=== PATIENT | female | born 1965 | race Hispanic/Latino ===

== ENCOUNTER 2017-01-06 22:07 | Emergency (ER) | payer OTHER ==
[~2017-01-06] VITALS: Ht 165.1 cm; Wt 90.7 kg
[2017-01-06 22:25] LABS: ABSOLUTE BASOPHIL COUNT 0 /CUMM (0.0-0.2); ABSOLUTE EOSINOPHIL COUNT 0.1 /CUMM (0.0-0.7); ABSOLUTE GRANULOCYTE CT 5.3 /CUMM (1.4-6.5); ABSOLUTE LYMPH COUNT 1.9 /CUMM (1.2-3.4); ABSOLUTE MONOCYTE COUNT 0.5 /CUMM (0.10-0.60); BASOPHIL % 0.3 % (0.0-2.0); GRANULOCYTE % 68.2 % (42.2-75.2); MEAN CORPUSCULAR HGB 29.8 PG (27.0-31.0); MEAN CORPUSCULAR HGB CONC 33.9 G/DL (33.0-37.0); MEAN PLATELET VOLUME 8.5 FL (7.4-10.4); PLATELET COUNT 220 /CUMM (130-400); RBC DISTRIBUTION WIDTH 13.4 % (11.5-14.5); RED BLOOD CELL CT 4.32 /CUMM (4.20-5.40); WHITE BLOOD CELL COUNT 7.8 /CUMM (4.8-10.8)
[2017-01-06] MEDS ORDERED: MULTI-DAY VITA1 EACH PO (22:29)
[2017-01-06] MEDS ORDERED: CRESTOR5 M1 PO (22:29)
[2017-01-06] MEDS ORDERED: ZESTRIL20 M1 PO (22:29)
[2017-01-06 23:09] VITALS: BP 152/96
--- NOTE | 2017-01-06 23:15 | RADIOLOGY REPORT ---
EXAMINATION: XR CHEST CLINICAL INFORMATION: Chest pain COMPARISON: None TECHNIQUE: 2 views of the chest were obtained. FINDINGS: No significant abnormality is noted involving the heart, lungs, mediastinum, bony thorax or soft tissues. IMPRESSION: Unremarkable examination.
--- NOTE | 2017-01-06 23:42 | ED CARDIAC/CP/PALPITATIONS ---
History of Present Illness General Chief Complaint: Chest Pain Stated Complaint: BIBA FOR CP Source: patient Exam Limitations: no limitations Vital Signs & Intake/Output Vital Signs & Intake/Output Vital Signs Date Time Temp Pulse Resp B/P B/P Pulse O2 O2 Flow FiO2 Mean Ox Delivery Rate 01/06 2309 65 16 152/96 98 Room Air 01/06 2233 98 Room Air 01/067 98.1 73 18 160/104 96 Room Air Allergies Coded Allergies: kiwi (ANAPHYLAXIS 01/06/17) Reconcile Medications Lisinopril (Zestril) (Unknown Strength) TABLET (Unknown Dose) PO DAILY SUPPLEMENT (Reported) Multivitamin (Multi-Day Vitamins) 1 EACH TABLET 1 TAB PO DAILY SUPPLEMENT ( Reported) Rosuvastatin Calcium (Crestor) 5 MG TABLET 1 TAB PO DAILY CHOLESTEROL ( Reported) Triage Note: pt biba from home after having CP. pt states it started over the past couple days as her stress has increased. she states afetr having an argument with ehr daughter the pain became much worse. skin is warm and dry, she is in no respiratory dsitress. states she has been taking her BP at home and it has been elevated. Triage Nurses Notes Reviewed? yes Onset: Abrupt Duration: hour(s):, day(s): Timing: recent history Location: central Radiation: no radiation Activities at Onset: none HPI: 51-year-old female comes into emergency room for further evaluation of central chest pain has been going on for the past 4 days intermittently that got worse tonight after an altercation verbally with her son. Patient reports that about an hour prior to arrival she got into a verbal altercation and argument with her son and started to experience some chest tightness and discomfort. Some mild shortness of breath associated with it. Denies any diaphoresis or nausea vomiting. No prior history of GA. History of hypertension and high cholesterol. Family history of grandfather having an GA in his 50s. Stress seems to make her symptoms worse. Denies any other substance of symptoms. (AMANDA RIVAS) Past History Travel History Traveled to [place] past 21 day No Medical History Any Pertinent Medical History? see below for history Neurological: NONE EENT: NONE Cardiovascular: hypertension, hyperlipidemia Respiratory: NONE Gastrointestinal: NONE Hepatic: NONE Renal: NONE Musculoskeletal: NONE Psychiatric: NONE Endocrine: diabetes (borderline) Blood Disorders: NONE Cancer(s): NONE GAUGE MAKER/Reproductive: NONE Surgical History Surgical History: non-contributory Psychosocial History What is your primary language Dutch Tobacco Use: Never used Family History Hx Contributory? Yes (see hpi) (AMANDA RIVAS) Review of Systems Review of Systems Constitutional: Reports: no symptoms. EENTM: Reports: no symptoms. Respiratory: Reports: no symptoms. Cardiovascular: Reports: see HPI. GI: Reports: no symptoms. Genitourinary: Reports: no symptoms. Musculoskeletal: Reports: no symptoms. Skin: Reports: no symptoms. Neurological/Psychological: Reports: no symptoms. Hematologic/Endocrine: Reports: no symptoms. Immunologic/Allergic: Reports: no symptoms. All Other Systems: Reviewed and Negative (AMANDA RIVAS) Physical Exam Physical Exam General Appearance: well developed/nourished, no apparent distress, alert Head: atraumatic, normal appearance Eyes: Bilateral: normal appearance, PERRL, EOMI. Ears, Nose, Throat: normal pharynx, normal ENT inspection, hearing grossly normal Neck: normal inspection, full range of motion Respiratory: normal breath sounds, no respiratory distress, chest wall tenderness Cardiovascular: regular rate/rhythm Back: normal inspection Extremities: normal inspection, normal range of motion, no edema Neurologic/Psych: no motor/sensory deficits, awake, alert, oriented x 3, normal gait, normal mood/affect Skin: intact, normal color Core Measures ACS in differential dx? Yes Severe Sepsis Present: No Septic Shock Present: No (AMANDA RIVAS) Progress Differential Diagnosis: AMI, aortic dissection, costochondritis, hyperkalemia, hypovolemia, hyperthyroid, musculoskeletal pain, myocarditis, pancreatitis, pericarditis, pneumonia, pneumothorax, pulmonary embolism, PUD/GERD, PVCs/PACs, respiratory failure, rib fracture, sepsis, unstable angina, V-fib/V-Tach, WPW syndrome Plan of Care: Orders Procedure Date/time Status TROPONIN LEVEL 01/07 215 Active EKG 01/07 215 Active Add-on Test (ER Only) 01/06 2233 Active D-DIMER 01/07 2216 Complete TROPONIN LEVEL 01/07 2212 Complete COMPREHENSIVE METABOLIC PANEL 01/07 2212 Complete CBC WITHOUT DIFFERENTIAL 01/07 2212 Complete EKG 01/07 2208 Active Laboratory Tests 01/06/172215: Anion Gap 10, Estimated GFR > 60, BUN/Creatinine Ratio 18.3, Glucose 101 H, Calcium 9.3, Total Bilirubin 0.8, AST 21, ALT 51, Alkaline Phosphatase 121, Troponin I < 0.01, Total Protein 7.8, Albumin 4.5, Globulin 3.3, Albumin/ Globulin Ratio 1.4, D-Dimer < 200, CBC w Diff NO MAN DIFF REQ, RBC 4.32, MCV 88.0, MCH 29.8, RDW 13.4, MPV 8.5, Gran % 68.2, Lymphocytes % 24.6, Monocytes % 5.9, Eosinophils % 1.0, Basophils % 0.3, Absolute Granulocytes 5.3, Absolute Lymphocytes 1.9, Absolute Monocytes 0.5, Absolute Eosinophils 0.1, Absolute Basophils 0, PUBS MCHC 33.9 Diagnostic Imaging: Viewed by Me: Radiology Read. Discussed w/RAD: Radiology Read. Radiology Impression: SERVICE DATE: 01/06/17 EXAM TYPE: RAD - XRY-CHEST XRAY, PA AND LATERAL EXAMINATION: XR CHEST CLINICAL INFORMATION: Chest pain COMPARISON: None TECHNIQUE: 2 views of the chest were obtained. FINDINGS: No significant abnormality is noted involving the heart, lungs, mediastinum, bony thorax or soft tissues. IMPRESSION: Unremarkable examination. Initial ED EKG: normal intervals, normal p-waves, normal QRS complex, normal sinus rhythm, rate (71), nonspecific ST T wave chg Hand-Off Endorsed To: MYA SALDANA MD Endorsed Time: 2342 Pending: EKG, other (second troponin) (AMANDA RIVAS) Comments: Patient has been obtained and lab results. Question up and answered. Patient does not want to wait to have a second set of enzymes. Patient understands the risks of leaving prior to finishing the workup. Patient understands that we had not ruled out acute coronary syndrome. Patient is awake alert and oriented 3. Patient is competent to make this decision. (MYA SALDANA MD) Departure Departure Disposition: HOME OR SELF CARE Condition: Stable Clinical Impression Primary Impression: Atypical chest pain Referrals: Alpesh RAMIREZ MD UNKNOWN (PCP/Family) Additional Instructions: Follow-up with bilingual inside sales representative provided for outpatient workup. Return if any concerns worsening symptoms. Please go over all results of today's visit with your primary care doctor. Contact your primary care doctor to let them know you were here in the emergency room. There may be nonspecific findings which may not be related to your visit today here in the emergency room but may require further evaluation and chronic monitoring by your primary care doctor. If you had a laceration today the chance of foreign body always remains. You should follow-up with your primary care doctor for recheck in 3-5 days for a wound check. If you had an x-ray done there is a chance that a fracture could have been missed on initial read and you should follow-up with your primary care doctor for repeat x-rays if symptoms persist. If your blood pressure was elevated here in the emergency room please have rechecked by her primary care doctor within the next 48 hours by your primary care doctor. If you were prescribed a narcotic here in the emergency room or any type of controlled substances you're not allowed to drive while taking this medication or operate any type of heavy machinery. Narcotics can make you feel lightheaded dizziness nausea and can cause constipation. You may need to garbage pick up worker a stool softener. Thank you for choosing [facility] emergency room. Please return to the emergency room immediately if you have any other concerns worsening of symptoms. Departure Forms: Customer Survey General Discharge Information (AMANDA RIVAS) PA/BUSINESS AFFAIRS MANAGER Co-Sign Statement Statement: ED Attending supervision documentation- [X] I saw and evaluated the patient. I have also reviewed all the pertinent lab results and diagnostic results. I agree with the findings and the plan of care as documented in the PA's/BUSINESS AFFAIRS MANAGER's documentation. [X] I have reviewed the ED Record and agree with the PA's/BUSINESS AFFAIRS MANAGER's documentation. [] Additions or exceptions (if any) to the PAs/BUSINESS AFFAIRS MANAGER's note and plan are summarized below: [] (LES SHINE,MYA Canchola) Critical Care Note Critical Care Note Critical Care Time: non-applicable (AMANDA RIVAS)
== END 2017-01-07 00:01 ==
LOC: ERH 22:07
PROVIDERS: Physician Assistant Medical
DX: R07.89 Other chest pain (principal)
CPT/HCPCS: 93005; 93010